=== PATIENT | male | born 1985 | race American Indian/Alaskan Native ===

== ENCOUNTER 2018-04-29 21:40 | Emergency (ER) | payer OTHER ==
[2018-04-29] MEDS ORDERED: ASPIRIN PO ONE (21:56)
--- NOTE | 2018-04-29 21:58 | Emergency Department Report ---
Blank Doc - Documentation Documentation: This is a 32 y.o. male that presents with chest pain. Patient reports left si ded chest pain, sharp, and intermittent. Reports pain last for 3 minutes. Saturday the pain last all day. Ordered labs. Fast track for further evaluation.
[2018-04-29 22:17] LABS: Basophils # (Auto) 0.1 K/mm3 (0.0-0.1); Basophils % (Auto) 1.2 % (0.0-1.8); Eosinophils # (Auto) 0.1 K/mm3 (0.0-0.4); Eosinophils % (Auto) 2.1 % (0.0-4.3); Hematocrit 41.1 % (35.5-45.6); Hemoglobin 13.8 gm/dl (11.8-15.2); Lymphocytes # (Auto) 1.4 K/mm3 (1.2-5.4); Lymphocytes % (Auto) 32.9 % (13.4-35.0); Mean Corpuscular HGB Conc 34 % (32-34); Mean Corpuscular Volume 85 fl (84-94); Monocytes # (Auto) 0.5 K/mm3 (0.0-0.8); Monocytes % (Auto) 10.7 % (0.0-7.3); Platelet Count 306 K/mm3 (140-440); Red Blood Count 4.82 M/mm3 (3.65-5.03); Red Cell Distribution Width 12.8 % (13.2-15.2)
[2018-04-29 22:30] LABS: BUN/Creatinine Ratio 14; Blood Urea Nitrogen 13 mg/dL (9-20); Calcium 9.7 mg/dL (8.4-10.2); Hemolysis Index 4
--- NOTE | 2018-04-29 23:01 | Emergency Department Report ---
ED Chest Pain HPI - General Chief Complaint: Chest Pain Stated Complaint: HEADACHE/LIGHT HEADED/CHEST PAIN Time Seen by Provider: 04/29/18 21:55 Source: patient Mode of arrival: Ambulatory Limitations: No Limitations - History of Present Illness Initial Comments: Pt is a 32 yo male who presents to the ED with c/o left sided CP that began on 04/25/18. He states the pain has been intermittent since 04/25/18. Pt denies any radiation of the pain. He describes the pain as sharp. He states he has experienced this pain previously in the past but has never seen anyone for it and feels like the pain is worse this episode. He denies any N/V, GARBER, pleuritic CP, cough, fever, diaphoresis. He denies any personal or family hx of cardiac problems. He denies cigarette use but endorses marijuana use. He denies using any supplements. Pt denies any immobilization, LE edema, surgery, car/plane ride or family hx of DVT/PE. MD Complaint: chest pain Onset/Timin -: days(s) Pain Location: left chest Pain Radiation: none Severity: moderate Severity scale (0 -10): 0 Quality: sharp Consistency: intermittent Improves With: nothing Worsens With: nothing re: denies: nausea, vomting, diaphoresis Other Symptoms: denies: cough, fever, syncope, palpitations Aspirin use within the Past 7 Days: (0) No - Related Data Allergies Allergy/AdvReac Type Severity Reaction Status Date / Time No Known Allergies Allergy Verified 04/29/18 21:44 Heart Score - HEART Score History: Slightly suspicious EKG: Non-specific Age: < 45 Risk factors: No known risk factors Troponin: < normal limit HEART Score: 1 ED Review of Systems ROS: Stated complaint: HEADACHE/LIGHT HEADED/CHEST PAIN Other details as noted in HPI Comment: All other systems reviewed and negative Cardiovascular: as per HPI. denies: chest pain, palpitations, orthopnea, edema, syncope, paroxysmal nocturnal dyspnea ED Past Medical Hx - Past Medical History Previous Medical History?: No - Surgical History Past Surgical History?: No - Social History Smoking Status: Never Smoker Substance Use Type: None ED Physical Exam - General Limitations: No Limitations General appearance: alert, in no apparent distress - Head Head exam: Present: atraumatic, normocephalic - Eye Eye exam: Present: normal appearance - ENT ENT exam: Present: normal exam, mucous membranes moist - Neck Neck exam: Present: normal inspection - Respiratory Respiratory exam: Present: normal lung sounds bilaterally. Absent: respiratory distress, wheezes, rales, rhonchi, stridor, accessory muscle use, decreased breath sounds, prolonged expiratory - Cardiovascular Cardiovascular Exam: Present: regular rate, normal rhythm, normal heart sounds. Absent: systolic murmur, rubs, gallop - GI/Abdominal GI/Abdominal exam: Present: soft. Absent: distended, tenderness - Neurological Exam Neurological exam: Present: alert, oriented X3 - Psychiatric Psychiatric exam: Present: normal affect, normal mood ED Course Vital Signs 04/29/18 21:54 Temperature 98.0 F Pulse Rate 59 L Respiratory 18 Rate Blood Pressure 117/83 O2 Sat by Pulse 99 Oximetry - Reevaluation(s) Reevaluation #1: 04/30/18 01:[address] Astorga regarding pt, recommended repeat EKG and D-dimer. LITO score - Lito Score Age > 65: (0) No Aspirin use within the Past 7 Days: (0) No 3 or more CAD Risk Factors: (0) No 2 or more Angina events in past 24 hrs: (1) Yes Known CAD with more than 50% Stenosis: (0) No Elevated Cardiac Markers: (0) No ST Deviation Greater than 0.5mm: (0) No LITO Score: 1 ED Medical Decision Making - Lab Data Result diagrams: 04/29/18 22:00 04/29/18 22:00 - EKG Data EKG shows normal: axis, intervals, QRS complexes Rate: bradycardia (sinus bradycardia, with non specific ST-T changes, no STEMI per attending ) - EKG Data When compared to previous EKG there are: no significant change Interpretation: unchanged when compared t - Medical Decision Making Pt is a 32 yo who presents with left sided CP that began 5 days ago. He has had this pain previously. He has no cardiac risk factors and no family hx of heart problems. No family hx of DVT/PE, no PE risk factors. D-dimer is negative. T roponin x2 is negative. Repeated EKG which looks the same as before, non specific EKG changes. No STEMI per Dr. Astorga and Dr. Smith. VSS, lung and cardiac auscultation are normal. Will have pt follow up with cardiology. Advised pt to return to the ED if new or worsening sx. Also, advised to follow up with PCP in the next couple of days. Critical care attestation.: If time is entered above; I have spent that time in minutes in the direct care of this critically ill patient, excluding procedure time. ED Disposition Clinical Impression: Chest pain Qualifiers: Chest pain type: unspecified Qualified Code(s): R07.9 - Chest pain, unspecified Disposition: TO HOME OR SELFCARE Is pt being admited?: No Does the pt Need Aspirin: No (pt received aspirin while in the ED) Additional Instructions: Follow up with cardiology in the next two days. Follow up with primary care d uzair. Return to the emergency department if new or worsening symptoms. Referrals: JASMIN CONTRERAS MD [Primary Care Provider] - 3-5 Days Time of Disposition: 03:42 Print Language: [place]
[2018-04-30 03:50] VITALS: BP 118/74
== END 2018-04-30 03:50 | disposition home or self-care (01) ==
LOC: ED 21:40
DX: R07.89 Other chest pain (principal)
CPT/HCPCS: 36415; 80048; 84484; 85025; 85379; 93005; 93010; 99284